=== PATIENT | female | born 1940 | race Caucasian/White ===

== ENCOUNTER 2024-05-22 09:03 | Inpatient (IN) | payer BC, MEDICARE ==
[2024-05-22] MEDS ORDERED: Naloxone 0.4 MG/ML SDV IVPUSH PRN (10:00)
[2024-05-22 10:12] LABS: BASOPHILS ABSOLUTE AUTO 0.03 K/uL (0.00-0.10); BASOPHILS PERCENT AUTO 0.8 % (0.1-1.3); HEMOGLOBIN 12.5 g/dL (11.2-15.5); IMMATURE GRAN PERCENT AUTO 0.3 % (0.0-0.7); LYMPHOCYTES ABSOLUTE AUTO 0.79 K/uL (0.8-3.3); LYMPHOCYTES PERCENT AUTO 21.3 % (11.4-47.7); MEAN CORPUSCULAR HEMOGLOBIN 29.4 pg (31.6-35.5); MEAN CORPUSCULAR HGB CONC 35.7 g/dL (31.6-35.5); MEAN CORPUSCULAR VOLUME 82.4 fL (81.4-99.0); MONOCYTES PERCENT AUTO 8.1 % (3.3-12.6); NEUTROPHILS ABSOLUTE AUTO 2.58 K/uL (1.0-7.6); NEUTROPHILS PERCENT AUTO 69.5 % (40.0-78.1); PLATELET COUNT,PLT 134 K/uL (130-375); RED BLOOD CELL COUNT 4.25 M/uL (3.77-5.24); WHITE BLOOD CELL COUNT,WBC 3.7 K/uL (3.2-11.0)
[2024-05-22 10:13] LABS: BICARBONATE,VENOUS 23.5 mmol/L; CARBOXYHEMOGLOBIN 2.6 % (0.0-1.6); METHEMOGLOBIN 0.8 %; O2 SATURATION VENOUS 88.3; OXYHEMOGLOBIN 85.3 %; PCO2 VENOUS 28.1 mm/Hg; PH,VENOUS 7.532 (7.350-7.450); PO2 VENOUS 49.7 mm/Hg; TOTAL HEMOGLOBIN 13.2 g/dL (12.0-16.0)
[2024-05-22 10:14] LABS: IMMATURE GRAN ABSOLUTE AUTO 0.01 K/uL (0.00-0.23)
[2024-05-22] MEDS: Ondansetron 4 MG/2 ML SDV IVPUSH ONE (10:24)
[2024-05-22] MEDS: Sodium Chloride 0.9% 1,000 ML IV ONE (10:24)
[2024-05-22] MEDS: HYDROmorphone 0.5 MG/0.5 ML Syringe IVPUSH PRN (10:24)
[2024-05-22 10:33] LABS: A/G RATIO 0.9 (1.2-2.2); ALANINE AMINOTRANSFERASE,ALT 51 U/L (12-78); ALBUMIN 3.1 g/dL (3.4-5.0); ALKALINE PHOSPHATASE 61 U/L (46-116); ANION GAP 13.2 mmol/L (5.0-14.0); ASPARTATE AMNIOTRANSFERASE,AST 56 U/L (15-37); BILIRUBIN TOTAL 0.6 mg/dL (0.2-1.0); BLOOD UREA NITROGEN,BUN 14 mg/dL (7-18); CALCIUM 8.4 mg/dL (8.5-10.1); CARBON DIOXIDE,CO2 25 mmol/L (21-32); CHLORIDE,CL 95 mmol/L (100-108); CREATININE 0.9 mg/dL (0.6-1.0); ESTIMATED GFR 63 mL/min (>60); GLUCOSE RANDOM 115 mg/dL (74-106); POTASSIUM,K 3.2 mmol/L (3.6-5.2); PROTEIN TOTAL,TP 6.6 g/dL (6.4-8.2); SODIUM,NA 130 mmol/L (140-148)
[2024-05-22 10:49] LABS: CORONAVIRUS COVID-19 NAA NEGATIVE (NEGATIVE); INFLUENZA A NAA NEGATIVE (NEGATIVE); INFLUENZA B NAA NEGATIVE (NEGATIVE); RESPIRATORY SYNCYTIAL VIR NAA NEGATIVE (NEGATIVE)
[2024-05-22] MEDS: NS + KCl 20mEq/L 1,000 ML IV SCH ×2 (11:02→20:43)
[2024-05-22] MEDS: Sodium Chloride 0.9% 1,000 ML IV SCH (12:41)
[2024-05-22] MEDS: Norepinephrine Bit/D5W Premix 4 MG in Premix Bag 1 BAG IV SCH (12:58)
[2024-05-22] MEDS ORDERED: LORazepam 2 MG/ML SDV IVPUSH PRN (14:46)
[2024-05-22] MEDS ORDERED: Ondansetron 4 MG/2 ML SDV IV PRN (14:46)
[2024-05-22] MEDS ORDERED: Ondansetron 4 MG Tab.DIS PO PRN (14:46)
[2024-05-22] MEDS ORDERED: Sennosides/Docusate Sodium 50-8.6 MG Tab PO PRN (14:46)
[2024-05-22] MEDS ORDERED: Magnesium Hydroxide 400 MG/5 ML Susp 30 ML Cup PO PRN (14:46)
[2024-05-22] MEDS ORDERED: LORazepam 1 MG Tab PO SCH (15:00)
[2024-05-22] MEDS ORDERED: LORazepam 2 MG/ML SDV IV SCH (15:00)
[2024-05-22 15:07] LABS: APPEARANCE,URINE CLEAR (CLEAR); BILIRUBIN,URINE NEGATIVE (NEGATIVE); COLOR,URINE YELLOW (YELLOW); GLUCOSE,URINE NEGATIVE (NEGATIVE); KETONES,URINE NEGATIVE (NEGATIVE); LEUKOCYTE ESTERASE,URINE NEGATIVE (NEGATIVE); NITRITE,URINE NEGATIVE (NEGATIVE); OCCULT BLOOD,URINE SMALL (NEGATIVE); PROTEIN,URINE NEGATIVE (NEGATIVE); UROBILINOGEN,URINE 0.2 EU/dL (0.2-1.0)
[2024-05-22 15:14] LABS: AMORPHOUS SEDIMENT,URINE NOT SEEN; BACTERIA,URINE FEW; EPITHELIAL CELLS,URINE RARE; MUCUS,URINE FEW; WBC,URINE 0-5 (0-5)
[2024-05-22] MEDS: Acetaminophen 325 MG Tab PO PRN (15:16)
[2024-05-22] MEDS: Latanoprost 0.005% Ophth Soln 2.5 ML Bottle EYEBOTH SCH (20:36)
[2024-05-22] MEDS ORDERED: Latanoprost 0.005% Ophth Soln 2.5 ML Bottle EYEBOTH SCH (21:00)
[2024-05-22] MEDS ORDERED: Timolol Maleate 0.5% Ophth Soln 5 ML Bottle EYEBOTH SCH (21:00)
[2024-05-23 05:16] LABS: BASOPHILS ABSOLUTE AUTO 0.03 K/uL (0.00-0.10); HEMATOCRIT 32.1 % (34.3-46.0); HEMOGLOBIN 11.1 g/dL (11.2-15.5); IMMATURE GRAN PERCENT AUTO 0.3 % (0.0-0.7); LYMPHOCYTES ABSOLUTE AUTO 0.92 K/uL (0.8-3.3); LYMPHOCYTES PERCENT AUTO 29.6 % (11.4-47.7); MEAN CORPUSCULAR HEMOGLOBIN 29.1 pg (31.6-35.5); MEAN CORPUSCULAR HGB CONC 34.6 g/dL (31.6-35.5); MEAN CORPUSCULAR VOLUME 84.3 fL (81.4-99.0); MONOCYTES ABSOLUTE AUTO 0.36 K/uL (0.20-0.90); MONOCYTES PERCENT AUTO 11.6 % (3.3-12.6); NEUTROPHILS ABSOLUTE AUTO 1.79 K/uL (1.0-7.6); NEUTROPHILS PERCENT AUTO 57.5 % (40.0-78.1); PLATELET COUNT,PLT 115 K/uL (130-375); RED BLOOD CELL COUNT 3.81 M/uL (3.77-5.24); WHITE BLOOD CELL COUNT,WBC 3.1 K/uL (3.2-11.0)
[2024-05-23 05:33] LABS: IMMATURE GRAN ABSOLUTE AUTO 0.01 K/uL (0.00-0.23)
[2024-05-23 05:36] LABS: A/G RATIO 0.8 (1.2-2.2); ALANINE AMINOTRANSFERASE,ALT 91 U/L (12-78); ALBUMIN 2.5 g/dL (3.4-5.0); ALKALINE PHOSPHATASE 82 U/L (46-116); ASPARTATE AMNIOTRANSFERASE,AST 106 U/L (15-37); BILIRUBIN TOTAL 0.4 mg/dL (0.2-1.0); BLOOD UREA NITROGEN,BUN 8 mg/dL (7-18); CALCIUM 7.9 mg/dL (8.5-10.1); CARBON DIOXIDE,CO2 24 mmol/L (21-32); CHLORIDE,CL 106 mmol/L (100-108); CREATININE 0.7 mg/dL (0.6-1.0); EST CRCL DRUG DOSING (CG) 55.31 mL/min; ESTIMATED GFR 85 mL/min (>60); GLUCOSE RANDOM 96 mg/dL (74-106); POTASSIUM,K 3.6 mmol/L (3.6-5.2); PROTEIN TOTAL,TP 5.6 g/dL (6.4-8.2); SODIUM,NA 139 mmol/L (140-148)
[2024-05-23 05:37] LABS: ANION GAP 12.6 mmol/L (5.0-14.0)
[2024-05-23] MEDS: Acetaminophen/Caffeine 500-65 MG Tab PO SCH (08:05)
[2024-05-23] MEDS: Timolol Maleate 0.5% Ophth Soln 5 ML Bottle EYEBOTH SCH (08:06)
[2024-05-23] MEDS: Iopamidol 612 MG/ML 100 ML Bottle IV ONE (08:55)
[2024-05-23] MEDS: Sodium Chloride 0.9% 80 ML IV SCH (08:56)
[2024-05-23] MEDS ORDERED: Non-Formulary Medication 1 Each (Aspirin/Acetaminophen/Caffeine [Excedrin Migraine Caplet] PO SCH (09:00)
[2024-05-23] MEDS ORDERED: CIMETIDINE 200 MG PO SCH (09:00)
[2024-05-23] MEDS: Thiamine 100 MG Tab PO SCH (09:55)
[2024-05-23] MEDS: Folic Acid 1 MG Tab PO SCH (09:56)
[2024-05-23] MEDS: Famotidine 20 MG Tab PO SCH (09:56)
[2024-05-23] MEDS ORDERED: Sodium Chloride 0.9% 10 ML Syringe IV PRN (13:05)
== END 2024-05-23 13:35 | disposition home or self-care (01) | DRG 312 ==
LOC: JP.ED 09:03 → JP.ICU 13:09
PROVIDERS: ADMIT Hospitalist; ATTEND Hospitalist
DX: I95.2 Hypotension due to drugs (principal); E87.1 Hypo-osmolality and hyponatremia; T50.2X5A Adverse effect of carbonic-anhydrase inhibitors, benzothiadiazides and other diuretics, initial encounter; E86.0 Dehydration; E87.3 Alkalosis; E86.1 Hypovolemia; F10.90 Alcohol use, unspecified, uncomplicated; K21.9 Gastro-esophageal reflux disease without esophagitis; H40.9 Unspecified glaucoma; M19.90 Unspecified osteoarthritis, unspecified site; E87.6 Hypokalemia; G47.30 Sleep apnea, unspecified; I10 Essential (primary) hypertension; Z79.82 Long term (current) use of aspirin; Z98.49 Cataract extraction status, unspecified eye; Z96.659 Presence of unspecified artificial knee joint; Z79.899 Other long term (current) drug therapy; Z87.891 Personal history of nicotine dependence
CPT/HCPCS: 0241U; 36415; 71260; 74177; 80053; 80307; 81001; 82803; 83605; 85025; 93005; 99223; 99239; 96361; 96365; 96366; 96368; 96375; 99285-25; A9270-GY; J1170; J2405; J3480; J3490; J7030; Q9967